=== PATIENT | male | born 1945 | race Two or more races ===

== ENCOUNTER 2019-05-26 06:32 | Day surgery (SDC) | payer MEDICARE, OTHER ==
[2019-05-26] MEDS ORDERED: KETOROLAC 0.5% OPHT DROP 3 ML BOTTLE ONE (06:45)
[2019-05-26] MEDS ORDERED: PHENYLEPHRINE 2.5% OPHT DROP 2 ML BOTTLE ONE (06:45)
[2019-05-26] MEDS ORDERED: CIPROFLOXACIN 0.3% OPHT DROP 2.5 ML BOTTLE ONE (06:45)
[2019-05-26] MEDS ORDERED: CYCLOPENTOLATE 1% OPHT DROP 2 ML BOTTLE ONE (06:45)
[2019-05-26] MEDS ORDERED: TETRACAINE HCL 0.5% OPHT DROP 2 ML BOTTLE ONE ×2 (06:45→07:28)
[2019-05-26] MEDS ORDERED: BALANCED SALT IRRIG SOLN COMB1 500 ML, EPINEPHRINE-PF 1:1000 1 MG IO ONE ×2 (07:00)
[2019-05-26 07:19] LABS: HEMATOCRIT 46.5 % (40-50); HEMOGLOBIN 15.4 G/DL (14.0-18.0); RED BLOOD CELL COUNT(AUTO) 4.95 MIL/UL (4.7-6.1); WHITE BLOOD COUNT (AUTO) 7.9 K/UL (4.0-11.2)
[2019-05-26 07:20] LABS: BASOPHILS # (AUTO) 0.1 K/uL (0.0-8.0); BASOPHILS % (AUTO) 0.9 % (0.0-2.0); EOSINOPHILS # (AUTO) 0.1 K/uL (0.0-0.7); EOSINOPHILS % (AUTO) 1.3 % (0.0-7.0); LYMPHOCYTES # (AUTO) 2.4 K/UL (0.8-4.8); LYMPHOCYTES % (AUTO) 30.2 % (20.5-51.5); MONOCYTES # (AUTO) 0.7 K/UL (0.1-1.30); MONOCYTES % (AUTO) 8.9 % (0.0-11.0); NEUTROPHILS # (AUTO) 4.6 K/UL (1.8-8.9); NEUTROPHILS % (AUTO) 58.7 % (38.5-71.5); PLATELET COUNT (AUTO) 173 K/UL (150-450)
[2019-05-26 07:21] LABS: MEAN CORPUSCULAR HEMOGLOBIN 31.1 UUG (27.0-31.0); MEAN CORPUSCULAR HGB CONC 33 g/dL (32.0-37.0)
[2019-05-26] MEDS ORDERED: PILOCARPINE 1% OPHT DROP 15 ML BOTTLE ONE (07:27)
[2019-05-26] MEDS ORDERED: BALANCED SALT IRRIG SOLN COMB2 15 ML IRRIG.SOLN ONE (07:28)
[2019-05-26] MEDS ORDERED: LIDOCAINE HCL-MPF 1% 5 ML VIAL ONE (07:28)
[2019-05-26] MEDS ORDERED: EPINEPHRINE 1 MG/1 ML AMP ONE (07:28)
[2019-05-26] MEDS ORDERED: BUPIVACAINE PF 0.5% 30 ML VIAL ONE (07:29)
[2019-05-26] MEDS ORDERED: NEO/POLYMYX B/DEXAM OPHT DROP 5 ML BOTTLE ONE (07:30)
[2019-05-26 07:32] LABS: CARBON DIOXIDE 28 mmol/L (21-32); CHLORIDE 103 mmol/L (98-107); CREATININE 0.8 mg/dL (0.6-1.3); GLUCOSE 155 mg/dL (74-106); POTASSIUM 4.5 mmol/L (3.5-5.1); UREA NITROGEN, BLOOD 21 mg/dL (7-20)
[2019-05-26] MEDS ORDERED: MIDAZOLAM HCL 2 MG/2 ML VIAL ONE (08:08)
[2019-05-26] MEDS ORDERED: TOBRAMYCIN/DEXAMETH OPHT OINT 3.5 GM TUBE ONE (08:09)
[2019-05-26] MEDS ORDERED: FLUMAZENIL 0.5 MG/5 ML VIAL ONE (08:09)
== END 2019-05-26 09:42 | disposition home or self-care (01) ==
LOC: DS 06:32
PROVIDERS: ATTEND Dermatology MOHS-Micrographic Surgery
DX: E11.36 Type 2 diabetes mellitus with diabetic cataract (principal); H25.89 Other age-related cataract; J98.11 Atelectasis; I10 Essential (primary) hypertension; Z98.890 Other specified postprocedural states; Z79.899 Other long term (current) drug therapy; Z88.0 Allergy status to penicillin; Z79.84 Long term (current) use of oral hypoglycemic drugs
CPT/HCPCS: 36415; 66984; 71045; 80048; 82962; 85025; 85730; J0171 ×2; J2250; J3490 ×3; V2632; A4663; J3590; J7030

== ENCOUNTER 2019-07-21 07:25 | Day surgery (SDC) | payer MEDICARE, OTHER ==
[2019-07-21] MEDS ORDERED: PROPOFOL 200 MG/20 ML BOTTLE IV ONE (07:26)
[2019-07-21] MEDS ORDERED: KETOROLAC 0.5% OPHT DROP 3 ML BOTTLE ONE (07:55)
[2019-07-21] MEDS ORDERED: PHENYLEPHRINE 2.5% OPHT DROP 2 ML BOTTLE ONE (07:55)
[2019-07-21] MEDS ORDERED: CYCLOPENTOLATE 1% OPHT DROP 2 ML BOTTLE ONE (07:55)
[2019-07-21] MEDS ORDERED: CIPROFLOXACIN 0.3% OPHT DROP 2.5 ML BOTTLE ONE (07:55)
[2019-07-21] MEDS ORDERED: NEO/POLYMYX B/DEXAME OPHT OINT 3.5 GM TUBE ONE (07:57)
[2019-07-21] MEDS ORDERED: TETRACAINE HCL 0.5% OPHT DROP 2 ML BOTTLE ONE ×2 (07:57→08:00)
[2019-07-21] MEDS ORDERED: PILOCARPINE 1% OPHT DROP 15 ML BOTTLE ONE (07:57)
[2019-07-21] MEDS ORDERED: LIDOCAINE HCL-MPF 1% 5 ML VIAL ONE (07:57)
[2019-07-21] MEDS ORDERED: EPINEPHRINE 1 MG/1 ML AMP ONE (07:58)
[2019-07-21] MEDS ORDERED: BALANCED SALT IRRIG SOLN COMB2 15 ML IRRIG.SOLN ONE (07:58)
[2019-07-21] MEDS ORDERED: BUPIVACAINE PF 0.5% 30 ML VIAL ONE (07:58)
[2019-07-21] MEDS ORDERED: BALANCED SALT IRRIG SOLN COMB1 500 ML, EPINEPHRINE-PF 1:1000 1 MG IO ONE ×2 (08:00)
[2019-07-21] MEDS ORDERED: FENTANYL CITRATE 100 MCG/2 ML AMPUL ONE (08:17)
[2019-07-21 08:24] LABS: BASOPHILS # (AUTO) 0.1 K/uL (0.0-8.0); BASOPHILS % (AUTO) 1.3 % (0.0-2.0); EOSINOPHILS # (AUTO) 0.1 K/uL (0.0-0.7); EOSINOPHILS % (AUTO) 2.2 % (0.0-7.0); HEMATOCRIT 45.6 % (36.7-47.1); HEMOGLOBIN 15.1 g/dL (12.5-16.3); LYMPHOCYTES # (AUTO) 2.5 K/uL (20.0-40.0); LYMPHOCYTES % (AUTO) 38.5 % (20.5-51.5); MEAN CORPUSCULAR HEMOGLOBIN 30.4 uug (23.8-33.4); MEAN CORPUSCULAR HGB CONC 33 g/dL (32.5-36.3); MEAN CORPUSCULAR VOLUME 91.6 fL (73.0-96.2); MONOCYTES # (AUTO) 0.6 K/uL (2.0-10.0); NEUTROPHILS # (AUTO) 3.2 K/uL (1.8-8.9); PLATELET COUNT (AUTO) 165 K/uL (152-348); RED BLOOD CELL COUNT(AUTO) 4.98 MIL/uL (4.06-5.63); WHITE BLOOD COUNT (AUTO) 6.6 K/uL (3.6-10.2)
[2019-07-21 08:36] LABS: *BILIRUBIN,URIN NEGATIVE (NEGATIVE); *BLOOD, URINE NEGATIVE (NEGATIVE); *CLARITY,URINE CLEAR (CLEAR); *COLOR,URINE YELLOW (YELLOW); *KETONES,URINE NEGATIVE (NEGATIVE); *UROBILINOGEN,URINE 0.2 E.U./dl (NORMAL); LEUKOCYTE ESTERASE ,URINE 1+ (NEGATIVE); NITRITE, URINE NEGATIVE (NEGATIVE); PH,URINE 5.5 (5.0-8.0); UGLUCOSE NEGATIVE (NEGATIVE)
[2019-07-21 08:37] LABS: BILIRUBIN,TOTAL 0.4 mg/dL (0.2-1.0); CREATININE 1.2 mg/dL (0.6-1.3); POTASSIUM 4.7 mmol/L (3.5-5.1); TOTAL PROTEIN, SERUM 7.5 g/dL (6.4-8.2)
[2019-07-21 08:43] LABS: BACTERIA,URINE FEW /HPF (NONE SEEN); RBC,URINE 0-3 /HPF (0-3)
== END 2019-07-21 11:35 | disposition home or self-care (01) ==
LOC: DS 07:25
PROVIDERS: ATTEND Dermatology MOHS-Micrographic Surgery
DX: E11.36 Type 2 diabetes mellitus with diabetic cataract (principal); H25.89 Other age-related cataract; I10 Essential (primary) hypertension; E78.5 Hyperlipidemia, unspecified; Z88.0 Allergy status to penicillin; Z98.890 Other specified postprocedural states; Z79.899 Other long term (current) drug therapy
CPT/HCPCS: 36415; 66984; 71045; 80053; 81000; 81001; 85025; 85730; 87077; 87086; 87186; 93005; J0171 ×2; J3010; J3490 ×2; J7120; V2632; A4663; J3590